=== PATIENT | female | born 1965 | race Caucasian/White ===

== ENCOUNTER 2025-03-14 12:29 | Emergency (ER) | payer OTHER ==
[~2025-03-14] VITALS: Ht 162.6 cm; Wt 75.0 kg
[2025-03-14 12:32] VITALS: O2SAT 100
[2025-03-14] MEDS: ACETAMINOPHEN 325MG TABLET PO ONE (13:15)
[2025-03-14] MEDS: KETOROLAC 30MG/ML VIAL IM ONE (14:13)
[2025-03-14] MEDS ORDERED: NAPR220C61 MT (14:19)
[2025-03-14 15:47] VITALS: BP 135/69; PULSE 71; RESP 18; TEMP 36.2; O2SAT 100
== END 2025-03-14 15:48 | disposition home or self-care (01) ==
LOC: ER 12:29
DX: S09.90XA Unspecified injury of head, initial encounter (principal); E11.9 Type 2 diabetes mellitus without complications; M25.512 Pain in left shoulder; X58.XXXA Exposure to other specified factors, initial encounter; Y93.89 Activity, other specified; Y92.89 Other specified places as the place of occurrence of the external cause; Y99.8 Other external cause status
CPT/HCPCS: 99285; 70450; 73590; 73610; 72125; 96372; J1885